=== PATIENT | male | born 1950 | race Caucasian/White ===

== ENCOUNTER 2017-04-20 06:49 | Day surgery (SDC) | payer BC ==
[~2017-04-20 06:49] MED LIST: Lactated Ringers 1,000 ML IV SCH
[2017-04-20] MEDS ORDERED: Midazolam 1 MG/ML 2 ML SDV IV ONE (08:00)
[2017-04-20] MEDS ORDERED: Propofol 200 MG/20 ML SDV IV ONE (08:00)
--- NOTE | 2017-04-20 08:28 | PCM.OPNOTE ---
- General Post-Op/Procedure Note Date of Surgery/Procedure: 04/20/17 Operative Procedure(s): c scope with bx Findings: transverse colon and splenic flexure polyps Pre Op Diagnosis: hx of colon polyps Post-Op Diagnosis: transverse colon and splenic flexure polyps Anesthesia Technique: MAC Primary Surgeon: Arnulfo Chong Anesthesia Provider: Sherron Linda Pathology: transverse colon and splenic flexure polyps Complications: None Condition: Good Free Text/Narrative:: see dictation
[2017-04-20 09:34] VITALS: BP 141/79
--- NOTE | 2017-04-20 12:39 | OR ---
DATE OF OPERATION: 04/20/2017 SURGEON: Arnulfo Chong MD PROCEDURE PERFORMED: Colonoscopy with cold forceps biopsy. PREOPERATIVE DIAGNOSIS: History of colon polyps. POSTOPERATIVE DIAGNOSIS: Polyp of the proximal transverse colon and splenic flexure. INDICATIONS FOR PROCEDURE: This is a 66-year-old white male, who presents for his 5-year followup. He was offered and accepted C scope. DESCRIPTION OF PROCEDURE: After an excellent IV sedation was administered, digital rectal exam was performed. The patient was noted to have some prominent external tags, hemorrhoids, otherwise it was unremarkable. The flexible colonoscope was inserted and advanced to the cecum without difficulty. The following findings were noted. Ascending colon, unremarkable. Transverse colon; in the proximal transverse colon, a hyperplastic appearing polyp was noted, biopsied with cold biopsy forceps, and sent for permanent. In the splenic flexure, a small adenomatous appearing polyp biopsied with cold biopsy forceps and sent for permanent. Descending colon was unremarkable. Sigmoid was unremarkable. Rectum and anus were unremarkable. Colon was deflated as the scope was removed. The patient tolerated the procedure well and was taken to recovery in good condition. /[id number] /MODL
== END 2017-04-20 09:53 | disposition home or self-care (01) ==
LOC: FB.SDS 06:49
PROVIDERS: ATTEND Surgery
DX: Z12.11 Encounter for screening for malignant neoplasm of colon (principal); D12.3 Benign neoplasm of transverse colon; K63.5 Polyp of colon; Z86.010 Personal history of colon polyps; Z77.22 Contact with and (suspected) exposure to environmental tobacco smoke (acute) (chronic); Z79.899 Other long term (current) drug therapy
CPT/HCPCS: 45380; 88305; J2250; J2704; J7120

== ENCOUNTER 2021-06-20 11:45 | Emergency (ER) | payer MEDICARE, BC ==
[2021-06-20 12:40] VITALS: BP 119/75; PULSE 73
[2021-06-20] MEDS ORDERED: cefTRIAXone 500 MG Vial IVPUSH SCH (12:45)
[2021-06-20] MEDS ORDERED: VANCOmycin 1.5 GM/300 ML 1.5 GM in Premix Bag 1 BAG IV SCH (12:45)
--- NOTE | 2021-06-20 14:08 | EDM.PDOC ---
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 also with slight rhinorrhea and slight cough - Related Data Allergies Allergy/AdvReac Type Severity Reaction Status Date / Time No Known Allergies Allergy Verified 06/20/21 12:37 Home Meds: Home Meds NK [No Known Home Meds] 06/20/21 [History] Past Medical History HEENT History: Reports: Impaired Vision Cardiovascular History: Reports: None Respiratory History: Reports: None Gastrointestinal History: Genitourinary History: Reports: Prostate Disorder, Other (See Below) Other Genitourinary History: HEMATURIA Musculoskeletal History: Reports: None Neurological History: Reports: None Psychiatric History: Reports: None Endocrine/Metabolic History: Reports: None Hematologic History: Reports: None Immunologic History: Reports: None Oncologic (Cancer) History: Reports: Colon Other Oncologic History: TUBULAR ADENOMA IN 2010 Dermatologic History: Reports: None - Infectious Disease History Infectious Disease History: Reports: Chicken Pox, Measles, Mumps, Rubella - Past Surgical History Head Surgeries/Procedures: Reports: None HEENT Surgical History: Reports: Tonsillectomy GI Surgical History: Reports: Colonoscopy, Other (See Below) Other GI Surgeries/Procedures: HX OF COLON POLYPS Social & Family History - Family History GI: Reports: None - Tobacco Use Tobacco Use Status *Q: Unknown Ever Used Tobacco - Caffeine Use Caffeine Use: Reports: Coffee ED ROS GENERAL - Review of Systems Review Of Systems: See Below Constitutional: Reports: No Symptoms HEENT: Reports: Eye Discharge Respiratory: Reports: No Symptoms Cardiovascular: Reports: No Symptoms Endocrine: Reports: No Symptoms GI/Abdominal: Reports: No Symptoms : Reports: No Symptoms Musculoskeletal: Reports: No Symptoms Skin: Reports: No Symptoms Neurological: Reports: No Symptoms Psychiatric: Reports: No Symptoms Hematologic/Lymphatic: Reports: No Symptoms Immunologic: Reports: No Symptoms ED EXAM, GENERAL - Physical Exam Exam: See Below Exam Limited By: No Limitations General Appearance: Alert, WD/WN, No Apparent Distress, Other (nonill) Eye Exam: Bilateral Eye: Conjunctival Injection (1+ red conj with 1+ swell b/l, clear d/c) Ears: Hearing Grossly Normal Nose: Other (slight clear d/c) Throat/Mouth: Normal Inspection, Normal Lips, Normal Teeth, Normal Gums, Normal Oropharynx, Normal Voice, No Airway Compromise Head: Atraumatic, Normocephalic Neck: Normal Inspection, Supple, Non-Tender, Full Range of Motion Respiratory/Chest: No Respiratory Distress, Lungs Clear, Normal Breath Sounds, No Accessory Muscle Use, Chest Non-Tender Cardiovascular: Regular Rate, Rhythm, No Edema, No Gallop, No JVD, No Murmur, No Rub GI/Abdominal: Soft, Non-Tender, No Distention Back Exam: Normal Inspection, Full Range of Motion, NT Extremities: Normal Inspection, Normal Range of Motion, Non-Tender, Normal Capillary Refill, No Pedal Edema Neurological: Alert, Oriented, CN II-XII Intact, Normal Cognition, No Motor/Sensory Deficits Psychiatric: Normal Affect, Normal Mood Skin Exam: Warm, Dry, Intact, Normal Color, No Rash Lymphatic: No Adenopathy Course - Vital Signs Last Recorded V/S: Last Vital Signs Temp 37.4 C 06/20/21 11:50 Pulse 73 06/20/21 11:50 Resp 18 06/20/21 11:50 BP 119/75 06/20/21 11:50 Pulse Ox 98 06/20/21 11:50 - Orders/Labs/Meds Orders: Active Orders 24 hr Category Date Time Status C-REACTIVE PROTEIN [CHEM] Stat Lab 06/20/21 14:04 Ordered CBC WITH AUTO DIFF [HEME] Stat Lab 06/20/21 14:04 Ordered COMPREHENSIVE METABOLIC PN,CMP [CHEM] Stat Lab 06/20/21 14:04 Ordered Meds: Medications Discontinued Medications Generic Name Dose Route Start Last Admin Trade Name Freq PRN Reason Stop Dose Admin Ceftriaxone Sodium 1,000 mg 06/20/21 12:45 06/20/21 13:10 Ceftriaxone 500 Mg Vial IVPUSH 06/24/21 12:45 Not Given DAILY SHAYLA Vancomycin HCl 1.5 gm/ Premix 300 mls @ 200 mls/hr 06/20/21 12:45 06/20/21 13:11 IV 06/24/21 12:45 Not Given Q24H SHAYLA Departure - Discharge Information Referrals: PCP,None [Primary Care Provider] - Sepsis Event Note (ED) - Focused Exam Vital Signs: Vital Signs Temp Pulse Resp BP Pulse Ox 06/20/21 11:50 37.4 C 73 18 119/75 98 - My Orders Last 24 Hours: My Active Orders 06/20/21 14:04 C-REACTIVE PROTEIN [CHEM] Stat CBC WITH AUTO DIFF [HEME] Stat COMPREHENSIVE METABOLIC PN,CMP [CHEM] Stat - Assessment/Plan Last 24 Hours: My Active Orders 06/20/21 14:04 C-REACTIVE PROTEIN [CHEM] Stat CBC WITH AUTO DIFF [HEME] Stat COMPREHENSIVE METABOLIC PN,CMP [CHEM] Stat
--- NOTE | 2021-06-20 15:27 | EDM.PDOC ---
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 also with slight rhinorrhea and slight cough - Related Data Allergies Allergy/AdvReac Type Severity Reaction Status Date / Time No Known Allergies Allergy Verified 06/20/21 12:37 Home Meds: Home Meds Ketorolac [Acular 0.5% Ophth Soln] 1 drop EYEBOTH QID #3 ml 06/20/21 [Rx] Past Medical History HEENT History: Reports: Impaired Vision Cardiovascular History: Reports: None Respiratory History: Reports: None Gastrointestinal History: Genitourinary History: Reports: Prostate Disorder, Other (See Below) Other Genitourinary History: HEMATURIA Musculoskeletal History: Reports: None Neurological History: Reports: None Psychiatric History: Reports: None Endocrine/Metabolic History: Reports: None Hematologic History: Reports: None Immunologic History: Reports: None Oncologic (Cancer) History: Reports: Colon Other Oncologic History: TUBULAR ADENOMA IN 2010 Dermatologic History: Reports: None - Infectious Disease History Infectious Disease History: Reports: Chicken Pox, Measles, Mumps, Rubella - Past Surgical History Head Surgeries/Procedures: Reports: None HEENT Surgical History: Reports: Tonsillectomy GI Surgical History: Reports: Colonoscopy, Other (See Below) Other GI Surgeries/Procedures: HX OF COLON POLYPS Social & Family History - Family History GI: Reports: None - Tobacco Use Tobacco Use Status *Q: Unknown Ever Used Tobacco - Caffeine Use Caffeine Use: Reports: Coffee ED ROS GENERAL - Review of Systems Review Of Systems: See Below Constitutional: Reports: No Symptoms HEENT: Reports: Eye Discharge, Eye Pain Respiratory: Reports: Cough Cardiovascular: Reports: No Symptoms Endocrine: Reports: No Symptoms GI/Abdominal: Reports: No Symptoms : Reports: No Symptoms Musculoskeletal: Reports: No Symptoms Skin: Reports: No Symptoms Neurological: Reports: No Symptoms Psychiatric: Reports: No Symptoms Hematologic/Lymphatic: Reports: No Symptoms Immunologic: Reports: No Symptoms ED EXAM, GENERAL - Physical Exam Exam: See Below Free Text/Narrative:: c/o red and slightly itchy eyes b/l since awakening, clear d/c received booster 2d ago, as did his who has myalgias pt with low grade temp and evidence of an inflammatory reaction takes no daily meds never had COVID 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, 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, 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 also with slight rhinorrhea and slight cough Exam Limited By: No Limitations General Appearance: Alert, WD/WN, No Apparent Distress, Other (nonill) Eye Exam: Bilateral Eye: Other (1+ red and swell conj b/l, clear d/c, no purulence) Ears: Hearing Grossly Normal Nose: Other (slight clear d/c) Throat/Mouth: Normal Inspection, Normal Lips, Normal Teeth, Normal Gums, Normal Oropharynx, Normal Voice, No Airway Compromise Head: Atraumatic, Normocephalic Neck: Normal Inspection, Supple, Non-Tender, Full Range of Motion Respiratory/Chest: No Respiratory Distress, Lungs Clear, Normal Breath Sounds, No Accessory Muscle Use, Chest Non-Tender Cardiovascular: Regular Rate, Rhythm, No Edema, No Gallop, No JVD, No Murmur, No Rub GI/Abdominal: Soft, Non-Tender, No Distention Back Exam: Normal Inspection, Full Range of Motion, NT Extremities: Normal Inspection, Normal Range of Motion, Non-Tender, Normal Capillary Refill, No Pedal Edema Neurological: Alert, Oriented, CN II-XII Intact, Normal Cognition, No Motor/Sensory Deficits Psychiatric: Normal Affect, Normal Mood Skin Exam: Warm, Dry, Intact, Normal Color, No Rash Lymphatic: No Adenopathy Course - Vital Signs Last Recorded V/S: Last Vital Signs Temp 37.4 C 06/20/21 11:50 Pulse 73 06/20/21 11:50 Resp 18 06/20/21 11:50 BP 119/75 06/20/21 11:50 Pulse Ox 98 06/20/21 11:50 - Orders/Labs/Meds Labs: Laboratory Tests 06/20/21 06/20/21 06/20/21 Range/Units 12:50 12:50 12:50 WBC 7.1 (3.2-10.1) x10-3/uL RBC 5.04 (3.90-5.90) x10(6)uL Hgb 15.4 (12.9-17.7) g/dL Hct 46.0 (38.3-50.1) % MCV 91.3 (80.8-98.7) fL MCH 30.5 (27.0-33.3) pg MCHC 33.4 (28.7-35.3) g/dL RDW 12.3 L (12.4-15.0) % Plt Count 187 (117-477) x10(3)uL MPV 7.1 (6.7-11.0) fL Neut % (Auto) 76.2 H (40.3-71.8) % Lymph % (Auto) 11.4 L (15.8-45.3) % Guthrie % (Auto) 9.8 (5.5-15.2) % Eos % (Auto) 2.4 (0.1-6.8) % Baso % (Auto) 0.2 L (0.3-3.8) % Neut # (Auto) 5.4 (1.7-6.9) x10-3/uL Lymph # (Auto) 0.8 (0.5-4.5) x10-3/uL Guthrie # (Auto) 0.7 (0.0-1.2) x10-3/uL Eos # (Auto) 0.2 (0.0-0.6) x10-3/uL Baso # (Auto) 0.0 (0.0-0.3) x10-3/uL Sodium 142 (135-145) mmol/L Potassium 3.7 (3.5-5.3) mmol/L Chloride 106 (100-110) mmol/L Carbon Dioxide 30 (21-32) mmol/L BUN 12 (7-18) mg/dL Creatinine 0.9 (0.70-1.30) mg/dL Est Cr Clr Drug Dosing TNP Estimated GFR (MDRD) > 60 (>60) BUN/Creatinine Ratio 13.3 (9-20) Glucose 103 (80-116) mg/dL Calcium 8.5 L (8.6-10.2) mg/dL Total Bilirubin 1.4 H (0.1-1.3) mg/dL AST 10 (5-25) IU/L ALT 21 (12-36) U/L Alkaline Phosphatase 33 L (56-112) IU/L C-Reactive Protein 4.8 H* (0.5-0.9) mg/dL Total Protein 6.8 (6.0-8.0) g/dL Albumin 3.5 (3.2-4.6) g/dL Globulin 3.3 g/dL Albumin/Globulin Ratio 1.1 Meds: Medications Discontinued Medications Generic Name Dose Route Start Last Admin Trade Name Freq PRN Reason Stop Dose Admin Ceftriaxone Sodium 1,000 mg 06/20/21 12:45 06/20/21 13:10 Ceftriaxone 500 Mg Vial IVPUSH 06/24/21 12:45 Not Given DAILY SHAYLA Vancomycin HCl 1.5 gm/ Premix 300 mls @ 200 mls/hr 06/20/21 12:45 06/20/21 13:11 IV 06/24/21 12:45 Not Given Q24H SHAYLA - Re-Assessments/Exams Free Text/Narrative Re-Assessment/Exam: 06/20/21 15:30 labs printed and handed and d/w pt pt is having a systemic inflammatory reaction to COVID booster 2d ago, possibly from an unknown exposure to COVID prior to vaccines, possibly to hyperimmunization in a pt who may not have needed a booster Departure - Departure Time of Disposition: 15:21 Disposition: Home, Self-Care 01 Preliminary Cause of *Q: Cardiac Arrest Condition: Good Clinical Impression: Systemic adverse effect of COVID-19 vaccine, Inflammation of conjunctiva, Elevated C-reactive protein (CRP), Low grade fever - Discharge Information *PRESCRIPTION DRUG MONITORING PROGRAM REVIEWED*: Not Applicable *COPY OF PRESCRIPTION DRUG MONITORING REPORT IN PATIENT RAMY: Not Applicable Prescriptions: Ketorolac [Acular 0.5% Ophth Soln] 1 drop EYEBOTH QID #3 ml Referrals: PCP,None [Primary Care Provider] - Forms: ED Department Discharge Additional Instructions: For discomfort and inflammation, take acetaminophen 500 mg 2 tabs and ibuprofen 200 mg 2 tabs 4 times a day for 3 days, longer if needed. Use cool compresses on eyes as needed for discomfort. Avoid rubbing your eyes. If still having discomfort tomorrow, use ketorolac eye drops one drop in each eye 4 times a day for up to 4 days. See if your doctor if feeling worse or not much better in 5 days. Talk with your doctor before getting another vaccine. Sepsis Event Note (ED) - Focused Exam Vital Signs: Vital Signs Temp Pulse Resp BP Pulse Ox 06/20/21 11:50 37.4 C 73 18 119/75 98
== END 2021-06-20 15:53 | disposition home or self-care (01) ==
LOC: FB.ED 11:45
DX: R50.9 Fever, unspecified (principal); H11.89 Other specified disorders of conjunctiva; T50.B95A Adverse effect of other viral vaccines, initial encounter; R79.82 Elevated C-reactive protein (CRP)
CPT/HCPCS: 36415; 80053; 85025; 86140; 99283

== ENCOUNTER 2023-12-21 07:02 | Day surgery (SDC) | payer MEDICARE, BC ==
[~2023-12-21 07:02] MED LIST changes: -Lactated Ringers 1,000 ML IV SCH; +Sodium Chloride 0.9% 10 ML Syringe FLUSH PRN
[2023-12-21] MEDS ORDERED: Propofol 200 MG/20 ML SDV IV ONE (07:03)
[2023-12-21] MEDS ORDERED: fentaNYL 100 MCG/2 ML SDV IV ONE (07:03)
[2023-12-21] MEDS ORDERED: Midazolam 1 MG/ML 2 ML SDV IV ONE (07:03)
[2023-12-21] MEDS: Lactated Ringers 1,000 ML IV SCH (07:39)
[2023-12-21] MEDS: Simethicone Drops 40 MG/0.6 ML 30 ML Bottle PO ONE (08:23)
[2023-12-21 09:52] VITALS: BP 127/77; PULSE 68
== END 2023-12-21 09:41 | disposition home or self-care (01) ==
LOC: FB.SDS 07:02
PROVIDERS: ATTEND Surgery
DX: Z12.11 Encounter for screening for malignant neoplasm of colon (principal); D12.6 Benign neoplasm of colon, unspecified; Z86.010 Personal history of colon polyps
CPT/HCPCS: 00811; 88305; 99100; A9270-GY; J2250; J2704; J3010; J7120